=== PATIENT | female | born 1960 | race Caucasian/White ===

== ENCOUNTER 2017-10-16 10:08 | Outpatient (CLI) | payer OTHER ==
--- NOTE | 2017-11-01 14:59 | MMO ---
BILATERAL DIGITAL SCREENING MAMMOGRAMS: HISTORY: This 57-year-old female presents for digital screening mammography. COMPARISON: 10/13/16, 12/30/13. This patient's mammogram is interpreted with the assistance of computer-aided detection. FINDINGS: Scattered areas of fibroglandular density are noted bilaterally. There is no direct or indirect evid ence of malignancy. Appearance is stable. IMPRESSION: BI-RADS category 2, benign findings. Continued routine screening. POS: [facility]
== END 2017-10-16 10:09 | disposition home or self-care (01) ==
LOC: MAMMO 10:08
PROVIDERS: ATTEND Internal Medicine
DX: Z12.31 Encounter for screening mammogram for malignant neoplasm of breast (principal)
CPT/HCPCS: 77067; G0202

== ENCOUNTER 2018-11-22 13:59 | Outpatient (CLI) | payer BC, OTHER | END 2018-11-22 14:00 | disposition home or self-care (01) | LOC: BICMAMMO 13:59 | PROVIDERS: ATTEND Internal Medicine | DX: Z12.31 Encounter for screening mammogram for malignant neoplasm of breast (principal) | CPT/HCPCS: 77063; 77067 ==

== ENCOUNTER 2019-01-17 19:51 | Emergency (ER) | payer BC, OTHER ==
[2019-01-17] MEDS ORDERED: Ketorolac Tromethamine 30 MG/ML VIAL ONE (20:18)
--- NOTE | 2019-01-17 20:56 | RAD ---
AP VIEW OF THE PELVIS: 01/17/19 INDICATION: Fall with pelvic pain. IMPRESSION: No acute fracture or subluxation is evident. There are numerous phleboliths within the lower pelvis. There is mild degenerative change in both hips. POS: [facility]
--- NOTE | 2019-01-17 20:57 | RAD ---
RIGHT HIP TWO VIEWS: 01/17/19 INDICATION: Fall with right hip pain. IMPRESSION: No acute fracture or subluxation is evident. There is mild degenerative arthrosis of the right hip. POS: [facility]
--- NOTE | 2019-01-17 20:59 | RAD ---
RIGHT ANKLE THREE VIEWS: 01/17/19 INDICATION: Fall. COMPARISON: None. IMPRESSION: No acute fracture or subluxation is evident. There is enthesopathic change off the calcaneus. Accesso ry ossicle is seen adjacent to the cuboid. POS: [facility]
--- NOTE | 2019-01-17 21:00 | RAD ---
RIGHT FOOT THREE VIEWS: 01/17/19 INDICATION: Fall with right foot pain. COMPARISON: None. IMPRESSION: No acute fracture or subluxation is evident. There is a nonspecific subchondral cyst-like abnormality involving the great toe metatarsal head which may reflect sequela of remote injury. Accessory ossicl e seen adjacent to the cuboid. Lisfranc alignment is preserved. Enthesopathic changes seen off the ca lcaneus. POS: [facility]
== END 2019-01-17 20:55 | disposition home or self-care (01) ==
LOC: SCSER 19:51
DX: S93.401A Sprain of unspecified ligament of right ankle, initial encounter (principal); S70.01XA Contusion of right hip, initial encounter; W10.9XXA Fall (on) (from) unspecified stairs and steps, initial encounter
CPT/HCPCS: 72170; 96372; J1885